=== PATIENT | female | born 1955 | race Caucasian/White ===

== ENCOUNTER 2017-11-27 05:20 | Inpatient (IN) ==
[2017-11-27] MEDS ORDERED: ceFAZolin 1,000 MG in SYRINGE 1 EACH IV ONE (06:00)
[2017-11-27] MEDS ORDERED: DIAZEPAM 5 MG TABLET PO ONE (06:00)
[2017-11-27] MEDS ORDERED: VANCOMYCIN INJ 1,000 MG in SODIUM CHLORIDE 0.9% 250 ML IV ONE (06:00)
[2017-11-27] MEDS ORDERED: FAMOTIDINE 20 MG TABLET PO ONE (06:00)
[2017-11-27] MEDS ORDERED: DIAZEPAM 5 MG TABLET ONE (06:26)
[2017-11-27] MEDS ORDERED: FAMOTIDINE 20 MG TABLET ONE (06:26)
[2017-11-27] MEDS ORDERED: VANCOMYCIN 1,000 MG VIAL ONE (06:26)
[2017-11-27] MEDS ORDERED: ceFAZolin 1,000 MG VIAL ONE ×2 (06:26→07:38)
[2017-11-27] MEDS: LACTATED RINGERS 1,000 ML IV SCH (06:49)
[2017-11-27] MEDS ORDERED: diphenhydrAMINE CAP 25 MG CAPSULE PO PRN (07:13)
[2017-11-27] MEDS ORDERED: ONDANSETRON 4 MG/2 ML VIAL IV PRN (07:13)
[2017-11-27] MEDS ORDERED: TEMAZEPAM 7.5 MG CAPSULE PO PRN (07:13)
[2017-11-27] MEDS ORDERED: NALOXONE 0.4 MG/ML VIAL IV PRN ×2 (07:13→09:43)
[2017-11-27] MEDS ORDERED: HYDROmorphone 2 MG/1 ML VIAL IV PRN (07:13)
[2017-11-27] MEDS ORDERED: MAGNESIUM HYDROXIDE SUSP 30 ML UDCUP PO PRN (07:13)
[2017-11-27] MEDS ORDERED: PROMETHAZINE 25 MG/1 ML VIAL IM PRN (07:13)
[2017-11-27] MEDS ORDERED: BISACODYL 10 MG SUPP RECTAL PRN (07:13)
[2017-11-27] MEDS ORDERED: LACTULOSE 20 GM/30 ML UDCUP PO PRN (07:13)
[2017-11-27] MEDS ORDERED: MECLIZINE 25 MG TABLET PO PRN (07:15)
[2017-11-27] MEDS ORDERED: HYDROmorphone PCA 30 MG/30 ML SYRINGE IV SCH (07:30)
[2017-11-27] MEDS ORDERED: TRANEXAMIC ACID 1,000 MG/10 ML VIAL IV ONE (07:38)
[2017-11-27] MEDS ORDERED: ROPIVACAINE 0.5% 30 ML VIAL ONE (08:52)
[2017-11-27] MEDS ORDERED: PROPOFOL 200 MG/20 ML VIAL IV ONE (09:17)
[2017-11-27] MEDS ORDERED: MIDAZOLAM 2 MG/2 ML VIAL ONE (09:17)
[2017-11-27] MEDS ORDERED: ONDANSETRON 4 MG/2 ML VIAL ONE (09:18)
[2017-11-27] MEDS ORDERED: LACTATED RINGERS 1,000 ML IV ONE (09:18)
[2017-11-27] MEDS ORDERED: SODIUM CHLORIDE 0.9% 100 ML IV ONE (09:18)
[2017-11-27] MEDS ORDERED: SODIUM CHLORIDE 0.9% 250 ML IV ONE (09:18)
[2017-11-27] MEDS ORDERED: ePHEDrine 50 MG/ML AMP ONE (09:18)
[2017-11-27] MEDS ORDERED: ACETAMINOPHEN 1,000 MG/100 ML VIAL IV ONE (09:18)
[2017-11-27] MEDS ORDERED: MORPHINE 2 MG/1 ML SYRINGE IV PRN ×2 (09:46→10:49)
[2017-11-27] MEDS: MORPHINE PCA 30 MG/30 ML SYRINGE IV SCH (09:57)
[2017-11-27] MEDS: CALCIUM (CARBONATE)/VITAMIN D 600 MG-400 UNIT TABLET PO SCH (12:15)
[2017-11-27] MEDS: DOCUSATE SODIUM 100 MG CAPSULE PO SCH ×2 (12:15→20:14)
[2017-11-27] MEDS: ceFAZolin 2,000 MG in PREMIX 1 EACH IV SCH ×2 (12:26→20:13)
[2017-11-27] MEDS: FONDAPARINUX 2.5 MG/0.5 ML SYRINGE SUBCUT SCH (19:14)
[2017-11-27] MEDS: ROSUVASTATIN 10 MG TABLET PO SCH (20:14)
[2017-11-27] MEDS: LOSARTAN/HCTZ 50-12.5 MG TABLET PO SCH (20:14)
[2017-11-28] MEDS: MORPHINE PCA 30 MG/30 ML SYRINGE IV SCH ×2 (03:30→13:28)
[2017-11-28 06:18] LABS: Basophils # 0.1 10*3/uL (0.0-0.2); Basophils % 0.5 % (0.0-0.8); Eosinophils % 0.2 % (0.00-10.9); Hematocrit 35.1 VOL% (35.7-47.0); Hemoglobin 11.8 GM/DL (12.0-16.0); Immature Granulocytes % 0.5 %; Immature Granulocytes Absolute 0.09 #; Lymphocytes # 1.4 10*3/uL (1.4-4.0); Lymphocytes % 8.6 % (21.3-54.2); Mean Corpuscular HGB Conc 33.6 GM/DL (32-36); Mean Corpuscular Hemoglobin 31 PG (27-34); Mean Corpuscular Volume 92.4 FL (87-102); Mean Platelet Volume 10.1 FL (9.6-12.0); Monocytes % 12.1 % (1.7-12.7); Neutrophils # 13.2 10*3/uL (1.4-7.4); Neutrophils % 78.1 % (38.7-73.9); Platelet Count 303 T/CUMM (130-400); Red Cell Distribution Width 13.6 % (9.3-17.3); White Blood Count 16.8 T/CUMM (4-12)
[2017-11-28 06:44] LABS: Calcium 8.3 MG/DL (8.5-10.1); Osmolality,Calculated 274.8 MOS/KG (273-304); Potassium 3.7 MMOL/L (3.5-5.1)
[2017-11-28] MEDS: CALCIUM (CARBONATE)/VITAMIN D 600 MG-400 UNIT TABLET PO SCH (08:41)
[2017-11-28] MEDS: DOCUSATE SODIUM 100 MG CAPSULE PO SCH ×2 (08:41→21:55)
[2017-11-28] MEDS: LACTATED RINGERS 1,000 ML IV SCH (13:29)
[2017-11-28] MEDS: FONDAPARINUX 2.5 MG/0.5 ML SYRINGE SUBCUT SCH (18:04)
[2017-11-28] MEDS: LOSARTAN/HCTZ 50-12.5 MG TABLET PO SCH (21:56)
[2017-11-28] MEDS: ROSUVASTATIN 10 MG TABLET PO SCH (21:56)
[2017-11-29] MEDS: LACTATED RINGERS 1,000 ML IV SCH (04:06)
[2017-11-29 05:13] LABS: Basophils # 0.1 10*3/uL (0.0-0.2); Basophils % 0.5 % (0.0-0.8); Eosinophils # 0.3 10*3/uL (0.0-0.87); Eosinophils % 1.9 % (0.00-10.9); Hematocrit 32.1 VOL% (35.7-47.0); Hemoglobin 10.7 GM/DL (12.0-16.0); Immature Granulocytes % 0.5 %; Immature Granulocytes Absolute 0.09 #; Lymphocytes # 1.8 10*3/uL (1.4-4.0); Lymphocytes % 10.8 % (21.3-54.2); Mean Corpuscular HGB Conc 33.3 GM/DL (32-36); Mean Corpuscular Hemoglobin 31 PG (27-34); Mean Corpuscular Volume 92.5 FL (87-102); Mean Platelet Volume 10.5 FL (9.6-12.0); Monocytes # 1.5 10*3/uL (0.11-0.8); Neutrophils # 12.9 10*3/uL (1.4-7.4); Neutrophils % 77.3 % (38.7-73.9); Platelet Count 249 T/CUMM (130-400); Red Blood Count 3.47 MC/CUMM (3.8-5.5); Red Cell Distribution Width 13.6 % (9.3-17.3); White Blood Count 16.7 T/CUMM (4-12)
[2017-11-29 05:44] LABS: Calcium 8.4 MG/DL (8.5-10.1); Magnesium 1.9 MG/DL (1.8-2.4); Potassium 3.8 MMOL/L (3.5-5.1)
[2017-11-29] MEDS: DOCUSATE SODIUM 100 MG CAPSULE PO SCH ×2 (09:35→20:54)
[2017-11-29] MEDS: CALCIUM (CARBONATE)/VITAMIN D 600 MG-400 UNIT TABLET PO SCH (09:35)
[2017-11-29] MEDS: FONDAPARINUX 2.5 MG/0.5 ML SYRINGE SUBCUT SCH (17:03)
[2017-11-29] MEDS: LOSARTAN/HCTZ 50-12.5 MG TABLET PO SCH (20:54)
[2017-11-29] MEDS: ROSUVASTATIN 10 MG TABLET PO SCH (20:54)
[2017-11-30 07:53] VITALS: BP 120/68
[2017-11-30] MEDS: CALCIUM (CARBONATE)/VITAMIN D 600 MG-400 UNIT TABLET PO SCH (09:25)
[2017-11-30] MEDS: DOCUSATE SODIUM 100 MG CAPSULE PO SCH (09:25)
[2017-11-30] MEDS: FONDAPARINUX 2.5 MG/0.5 ML SYRINGE SUBCUT SCH (11:30)
== END 2017-11-30 12:10 | disposition home health service (06) | DRG 470 ==
LOC: N.SDSINP 05:20 → N.3E 10:32
PROVIDERS: ADMIT Orthopaedic Surgery; ATTEND Orthopaedic Surgery